=== PATIENT | female | born 2000 | race American Indian/Alaskan Native ===

== ENCOUNTER 2022-03-01 10:38 | Emergency (ER) | payer MEDICAID ==
--- NOTE | 2022-03-01 11:25 | XRay Report ---
LEFT FOOT 3 VIEW(S) INDICATION / CLINICAL INFORMATION: foot pain COMPARISON: None available. FINDINGS: BONES / JOINT(S): No acute fracture or subluxation. No significant arthritis. SOFT TISSUES: No significant abnormality. ADDITIONAL FINDINGS: None. Signer Name: Chintan De La Fuente MD Signed: 03/01/2022 11:20 AM Workstation Name: [id number]
[2022-03-01] MEDS ORDERED: traMADol 50 MG TAB PO ONE (12:45)
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
[2022-03-01 14:48] VITALS: BP 129/79
== END 2022-03-01 14:47 | disposition home or self-care (01) ==
LOC: ED 10:38
DX: S93.602A Unspecified sprain of left foot, initial encounter (principal); X58.XXXA Exposure to other specified factors, initial encounter; Y93.89 Activity, other specified; Y92.89 Other specified places as the place of occurrence of the external cause; Y99.8 Other external cause status
CPT/HCPCS: 99283

== ENCOUNTER 2022-03-06 12:51 | Emergency (ER) | payer MEDICAID ==
[2022-03-06] MEDS ORDERED: traMADol 50 MG TAB PO ONE (20:09)
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
--- NOTE | 2022-03-06 20:54 | XRay Report ---
LEFT FOOT 3 VIEWS INDICATION / CLINICAL INFORMATION: Left foot pain and swelling. COMPARISON: None available. FINDINGS: BONES and JOINT(S): No acute fracture or subluxation. No significant arthritis. SOFT TISSUES: No significant abnormality. ADDITIONAL FINDINGS: None. IMPRESSION: 1. No acute findings. Signer Name: Jose Alvarez MD Signed: 03/06/2022 8:49 PM Workstation Name: [id number]
[2022-03-06 21:26] VITALS: BP 116/72
== END 2022-03-06 23:22 | disposition home or self-care (01) ==
LOC: ED 12:51
DX: S90.32XA Contusion of left foot, initial encounter (principal); X58.XXXA Exposure to other specified factors, initial encounter; Y93.89 Activity, other specified; Y92.89 Other specified places as the place of occurrence of the external cause; Y99.8 Other external cause status
CPT/HCPCS: 99283

== ENCOUNTER 2022-05-03 19:31 | Emergency (ER) | payer MEDICAID ==
--- NOTE | 2022-05-04 01:24 | Emergency Department Report ---
ED Eye Problem HPI - General Chief complaint: Eye Problems Stated complaint: EYE PAIN Time Seen by Provider: 05/04/22 00:48 Source: patient Mode of arrival: Ambulatory Limitations: No Limitations - History of Present Illness MD chief complaint: eye redness -: Gradual Location: right eye Place: home Severity: mild If Pain, Quality: burning Consistency: constant Treatments Prior to Arrival: irrigated eye - Related Data Previous Rx's Medication Instructions Recorded Last Taken Type Naproxen 500 mg PO BID PRN #30 tab 03/01/22 Unknown Rx traMADoL [Ultram] 50 mg PO Q6HR PRN #12 tablet 03/06/22 Unknown Rx Ketorolac Tromethamin 0.4%(Nf) 1 drop OP QID #1 bottle 05/04/22 Unknown Rx [Acular Ls 0.4% Ophth [place]] Tobramycin 0.3% [Tobrex] 1 drop OU Q8HR #1 bottle 05/04/22 Unknown Rx Allergies Allergy/AdvReac Type Severity Reaction Status Date / Time No Known Allergies Allergy Verified 05/03/22 19:52 ED Review of Systems ROS: Stated complaint: EYE PAIN Other details as noted in HPI Comment: All other systems reviewed and negative ED Past Medical Hx - Medications Home Medications: Home Medications Medication Instructions Recorded Confirmed Last Taken Type Naproxen 500 mg PO BID PRN #30 tab 03/01/22 Unknown Rx traMADoL [Ultram] 50 mg PO Q6HR PRN #12 tablet 03/06/22 Unknown Rx Ketorolac Tromethamin 0.4%(Nf) 1 drop OP QID #1 bottle 05/04/22 Unknown Rx [Acular Ls 0.4% Ophth [place]] Tobramycin 0.3% [Tobrex] 1 drop OU Q8HR #1 bottle 05/04/22 Unknown Rx ED Physical Exam - General Limitations: No Limitations General appearance: alert, in no apparent distress - Head Head exam: Present: atraumatic, normocephalic - Eye Eye exam: Present: normal appearance, PERRL, EOMI, conjunctival injection Pupils: Present: normal accommodation, other - Expanded Eye Exam Expanded Eyelids: Swelling: Right Sclera/Conjunctival: Injection: Right Posterior chamber: Normal Inspection: Bilateral - ENT ENT exam: Present: normal exam, mucous membranes moist - Neck Neck exam: Present: normal inspection, full ROM - Respiratory Respiratory exam: Present: normal lung sounds bilaterally. Absent: respiratory distress - Cardiovascular Cardiovascular Exam: Present: regular rate, normal rhythm. Absent: systolic murmur, diastolic murmur, rubs, gallop - GI/Abdominal GI/Abdominal exam: Present: soft, normal bowel sounds - Extremities Exam Extremities exam: Present: normal inspection - Back Exam Back exam: Present: normal inspection - Neurological Exam Neurological exam: Present: alert, oriented X3 - Psychiatric Psychiatric exam: Present: normal affect, normal mood - Skin Skin exam: Present: warm, dry, intact, normal color. Absent: rash ED Course Vital Signs 05/03/22 19:53 Temperature 98.9 F Pulse Rate 87 Respiratory 18 Rate Blood Pressure 109/47 [Left] O2 Sat by Pulse 100 Oximetry Critical care attestation.: If time is entered above; I have spent that time in minutes in the direct care of this critically ill patient, excluding procedure time. ED Disposition Clinical Impression: Blepharitis Disposition: 01 HOME / SELF CARE / HOMELESS Is pt being admited?: No Does the pt Need Aspirin: No Condition: Stable Instructions: Blepharitis Prescriptions: Ketorolac Tromethamin 0.4%(Nf) [Acular Ls 0.4% Ophth [place]] 1 drop OP QID #1 bottle Tobramycin 0.3% [Tobrex] 1 drop OU Q8HR #1 bottle Referrals: [facility] [Provider Group] - 3-5 Days [facility] [Provider Group] - 3-5 Days
[2022-05-04 03:19] VITALS: BP 116/62
== END 2022-05-04 03:53 | disposition home or self-care (01) ==
LOC: ED 19:31
DX: H01.003 Unspecified blepharitis right eye, unspecified eyelid (principal)
CPT/HCPCS: 99282